=== PATIENT | male | born 1970 | race Asian ===

== ENCOUNTER 2017-01-11 07:17 | Emergency (ER) | payer OTHER ==
--- NOTE | 2017-01-11 07:23 | EDPHY ---
H & P HPI/ROS: HPI CHIEF COMPLAINT: Bilateral knee pain HISTORY OF PRESENT ILLNESS: This patient very pleasant 46-year-old male, significant past medical history for thyroid disease, and at times has arthritis , pre diabetes, presents to the emergency room with bilateral knee pain worse on the right than left. He states that he was gardening past few days and thinks that he may have inflamed his knees. No direct trauma. No fever. States they both hurt him. No significant swelling. No drainage. He has been having pain for for approximately 3 days. Past Medical History: Thyroid disease, arthritis, pre diabetes Past Surgical History: Denies recent surgical history Social History: Denies daily use of drugs alcohol tobacco products Family History: Noncontributory ROS REVIEW OF SYSTEMS: A comprehensive 10 point review of systems is otherwise negative aside from elements mentioned in the history of present illness. Exam Constitutional triage nursing summary reviewed, vital signs reviewed, awake/ alert. Eyes normal conjunctivae and sclera, EOMI, PERRLA. HENT normal inspection, atraumatic, moist mucus membranes, no epistaxis, neck supple/ no meningismus, no raccoon eyes. Respiratory clear to auscultation bilaterally, normal breath sounds, no respiratory distress, no wheezing. Cardiovascular rate normal, regular rhythm, no murmur, no edema, distal pulses normal. Gastrointestinal soft, non-tender, no rebound, no guarding, normal bowel sounds, no distension, no pulsatile mass. Genitourinary no CVA tenderness. Musculoskeletal Bilateral Knee exam: There is full range of motion. No anterior posterior drawer sign. Both legs are neurovascular intact good distal pulses, good warm extremities. No effusion over either knee, no warmth, no swelling. No clicking. Full range of motion of both knees. No signs of trauma. No signs of infection. no midline vertebral tenderness, full range of motion, no calf swelling, no tenderness of extremities, no meningismus, good pulses, neurovascularly intact. Skin pink, warm, & dry, no rash, skin atraumatic. Neurologic awake, alert and oriented x 3, AAOx3, moves all 4 extremities equally, motor intact, sensory intact, CN II-XII intact, normal cerebellar, normal vision, normal speech. Psychiatric normal mood/affect. Heme/Lymph/Immune no lymphadenopathy. Differential Diagnosis: Bilateral knee arthritis, effusion, gout, overuse injury Medical Decision Making: Plan for this patient trial of prednisone, Lanse for severe pain. I do recommend icing his knees, and anti-inflammatories. No indication for imaging at this time. No signs of swelling, effusion, redness, no indication for bilateral knee tap. Doubt septic joint. Doubt gout. He is comfortable this plan. I also recommends follow up with his primary care doctor. Return emergency room if there is any worsening symptoms questions or concerns. Source: Patient - Personal History Tetanus Vaccine Date: 2010 - Medical/Surgical History Hx Asthma: No Hx Chronic Respiratory Disease: No Hx Diabetes: Yes Hx Cardiac Disease: No Hx Renal Disease: No Hx Cirrhosis: No Hx Alcoholism: No Hx HIV/AIDS: No Hx Splenectomy or Spleen Trauma: No Other PMH: hypothyroid, high cholesterol, strep throat - Social History Smoking Status: Never smoked Constitutional: Initial Vital Signs Temperature (C) 36.7 C 01/11/17 07:22 Heart Rate 81 01/11/17 07:22 Respiratory Rate 16 01/11/17 07:22 Blood Pressure 131/88 H 01/11/17 07:22 O2 Sat (%) 95 01/11/17 07:22 O2 Delivery Mode Room Air Allergies/Adverse Reactions: No Known Allergies Allergy (Verified 01/11/17 07:21) Home Medications: Medication Instructions Recorded Lipitor 03/27/13 Metformon 03/27/13 Levothyroxine 07/17/16 Hydrocodone/APAP 5/325 [Lanse 1 - 2 tab PO Q4H PRN #10 tab 01/11/17 5/325] Hydrocodone/APAP 5/325 [Lanse 1 - 2 tab PO Q4H PRN #10 tab 01/11/17 5/325] predniSONE 60 mg PO DAILY #15 tab 01/11/17 predniSONE 60 mg PO DAILY #15 tab 01/11/17 Departure - Departure Disposition: Home, Routine, Self-Care Clinical Impression: Arthritis of knee Condition: Good Instructions: Arthritis (ED) Additional Instructions: 1. I recommended you ice her knees bilaterally. 2. Take prednisone for few days to see if this improves her symptoms. 3. Lanse for severe pain do not drive this medication can cause sedation. 4. I do recommend that he follow up with your primary care doctor Referrals: SHALOM MCCORMACK [Primary Care Provider] - As per Instructions Prescriptions: Hydrocodone/APAP 5/325 [Lanse 5/325] 1 - 2 tab PO Q4H PRN #10 tab PRN Reason: Pain, Moderate Hydrocodone/APAP 5/325 [Lanse 5/325] 1 - 2 tab PO Q4H PRN #10 tab PRN Reason: Pain, Moderate predniSONE 60 mg PO DAILY #15 tab predniSONE 60 mg PO DAILY #15 tab
[2017-01-11 07:25] VITALS: BP 131/88; PULSE 81; RESP 16; TEMP 98.1; O2SAT 95
== END 2017-01-11 07:51 | disposition home or self-care (01) ==
LOC: CED 07:17
DX: M17.0 Bilateral primary osteoarthritis of knee (principal)